=== PATIENT | male | born 1980 | race African-American/Black ===

== ENCOUNTER 2017-06-03 23:32 | Inpatient (IN) | payer MEDICAID, OTHER ==
[~2017-06-03] VITALS: Ht 185.4 cm; Wt 92.5 kg
[2017-06-03] MEDS ORDERED: LISI-167 PO (23:43)
[2017-06-03] MEDS ORDERED: LABETALOL 5MG/ML, 20ML ONE (23:47)
[2017-06-04] VITALS (14 sets, daily range): BP systolic 165–217; BP diastolic 86–187
[2017-06-04] MEDS ORDERED: LABETALOL 5MG/ML, 20ML IVPush ONE
[2017-06-04 00:17] LABS: HEMATOCRIT 51.2 % (39.2-51.8); HEMOGLOBIN 17.2 g/dL (13.7-18.0); WHITE BLOOD COUNT 7.9 x10^3/uL (3.4-10)
[2017-06-04 00:25] LABS: BLOOD UREA NITROGEN 19 mg/dL (7-18)
[2017-06-04 00:30] LABS: IS PT STATUS REG ER OR PRE ER? YES
[2017-06-04] MEDS ORDERED: hydrALAzine 20 MG/ML, 1ML IV ONE (00:30)
[2017-06-04] MEDS ORDERED: hydrALAzine 20 MG/ML, 1ML ONE (00:35)
[2017-06-04] MEDS ORDERED: SODIUM CHLORIDE FLUSH 10ML SYR IVF PRN (01:30)
[2017-06-04] MEDS ORDERED: LISINOPRIL 20 MG TABLET ONE (01:45)
[2017-06-04] MEDS ORDERED: LISINOPRIL 20 MG TABLET PO SCH (02:00)
[2017-06-04] MEDS ORDERED: ONDANSETRON 2MG/ML, 2ML IVPush PRN (02:00)
[2017-06-04] MEDS ORDERED: ACETAMINOPHEN 325 MG TABLET ONE (03:38)
[2017-06-04] MEDS: hydrALAzine 20 MG/ML, 1ML IVPush PRN ×3 (03:40→17:37)
[2017-06-04] MEDS: ACETAMINOPHEN 325 MG TABLET PO PRN ×3 (03:40→20:53)
[2017-06-04] MEDS ORDERED: METOPROLOL TARTRATE 25 MG TABLET PO SCH (06:00)
[2017-06-04] MEDS ORDERED: LORazepam 1MG TABLET PO PRN (07:00)
[2017-06-04] MEDS ORDERED: AMLODIPINE 5 MG TABLET PO SCH ×2 (09:00→14:00)
[2017-06-04] MEDS: SODIUM CHLORIDE FLUSH 10ML SYR IVF SCH ×2 (11:37→22:44)
[2017-06-04] MEDS ORDERED: ENALAPRILAT 1.25 MG/ML, 2ML ONE (13:44)
[2017-06-04] MEDS ORDERED: ENALAPRILAT 1.25 MG/ML, 2ML IV ONE (14:00)
[2017-06-04] MEDS: LISINOPRIL 20 MG TABLET PO SCH (22:44)
[2017-06-05] MEDS: SODIUM CHLORIDE FLUSH 10ML SYR IVF SCH ×2 (10:54→21:06)
[2017-06-05 13:10] VITALS: BP 177/110
[2017-06-05] MEDS: hydrALAzine 20 MG/ML, 1ML IVPush PRN (13:38)
[2017-06-05 15:42] LABS: DAU SCREEN DISCLAIMER
[2017-06-05 19:56] VITALS: BP 144/98
[2017-06-05 21:05] VITALS: BP 122/70
[2017-06-05] MEDS: LISINOPRIL 20 MG TABLET PO SCH (21:07)
[2017-06-06 02:35] VITALS: BP 146/77
[2017-06-06 05:18] LABS: HEMATOCRIT 53.4 % (39.2-51.8); HEMOGLOBIN 17.8 g/dL (13.7-18.0); WHITE BLOOD COUNT 6.7 x10^3/uL (3.4-10)
[2017-06-06 05:29] LABS: BLOOD UREA NITROGEN 21 mg/dL (7-18)
[2017-06-06 05:34] LABS: ASPARTATE AMINO TRANSFERASE 18 U/L (15-37)
[2017-06-06 08:00] VITALS: BP 149/91
[2017-06-06] MEDS: SODIUM CHLORIDE FLUSH 10ML SYR IVF SCH (08:40)
[2017-06-06] MEDS ORDERED: AMLODIPINE 5 MG TABLET PO SCH ×2 (12:00→14:00)
[2017-06-06] MEDS ORDERED: LISI-170 PO (16:05)
[2017-06-06] MEDS ORDERED: AMLO5TAB2 PO (16:05)
[2017-06-06 16:18] VITALS: BP 133/87
== END 2017-06-06 17:51 | disposition home or self-care (01) | DRG 305 ==
LOC: ED 06-04 00:47 → EDIP 06-04 01:03 → 5SO 06-04 02:32 → CCU 06-04 19:03 → 5SO 06-05 13:08
PROVIDERS: ADMIT Hospitalist; ATTEND Hospitalist
DX: I16.9 Hypertensive crisis, unspecified (principal); I12.9 Hypertensive chronic kidney disease with stage 1 through stage 4 chronic kidney disease, or unspecified chronic kidney disease; F14.10 Cocaine abuse, uncomplicated; F39 Unspecified mood [affective] disorder; F17.210 Nicotine dependence, cigarettes, uncomplicated; F12.90 Cannabis use, unspecified, uncomplicated; J45.909 Unspecified asthma, uncomplicated; N18.9 Chronic kidney disease, unspecified; Z65.3 Problems related to other legal circumstances; Z81.8 Family history of other mental and behavioral disorders; Z82.49 Family history of ischemic heart disease and other diseases of the circulatory system; Z91.14 Patient's other noncompliance with medication regimen
CPT/HCPCS: 36415; 70450; 71010; 80048; 80053; 80307; 81003; 82040; 82962; 84484; 85025; 85610; 85730; 87081; 93005; 96374; 96375; G0479; J0360